=== PATIENT | male | born 1995 | race Asian ===

== ENCOUNTER 2019-01-14 18:03 | Emergency (ER) | payer OTHER ==
[2019-01-14 18:23] VITALS: BP 109/66
--- NOTE | 2019-01-14 18:29 | UC ---
Lower Extremity/Ankle HPI - HPI Summary HPI Summary: twisted right ankle about 2 hurs SKIN FORMER while playing basketball---pain and swelling lateral aspect of right ankle---no foot pain - History of Current Complaint Chief Complaint: UCLowerExtremity Stated Complaint: R ANKLE INJURY Time Seen by Provider: 01/14/19 18:16 Hx Obtained From: Patient Onset/Duration: Sudden Onset, Lasting Hours - 2 Pain Intensity: 8 - refused pain medicine Pain Scale Used: 0-10 Numeric Aggravating Factor(s): Standing, Ambulation Alleviating Factor(s): Rest, Elevation, Ice Able to Bear Weight: Yes - with pain - Allergies/Home Medications Allergies/Adverse Reactions: Allergies Allergy/AdvReac Type Severity Reaction Status Date / Time environmental Allergy Congestion Uncoded 01/14/19 18:23 Home Medications: Home Medications NK [No Home Medications Reported] 01/14/19 [History Confirmed 01/14/19] PMH/Surg Hx/FS Hx/Imm Hx Previously Healthy: Yes - Surgical History Surgical History: None - Family History Known Family History: Positive: None - Social History Occupation: Student Lives: Dormitory/Roommates Alcohol Use: Occasionally Substance Use Type: None Smoking Status (MU): Current Some Day Smoker Amount Used/How Often: 1 cig/3 months Household Exposure Type: Cigarettes Review of Systems All Other Systems Reviewed And Are Negative: Yes Constitutional: Positive: Negative Skin: Positive: Negative Eyes: Positive: Negative ENT: Positive: Negative Respiratory: Positive: Negative Cardiovascular: Positive: Negative Gastrointestinal: Positive: Negative Genitourinary: Positive: Negative Motor: Positive: Other - right ankle Neurovascular: Positive: Negative Musculoskeletal: Positive: Arthralgia - lateral right ankle Neurological: Positive: Negative Psychological: Positive: Negative Is Patient Immunocompromised?: No Physical Exam Triage Information Reviewed: Yes Appearance: Well-Appearing, No Pain Distress, Well-Nourished Vital Signs: Initial Vital Signs Temp 98.9 F 01/14/19 18:19 Pulse 77 01/14/19 18:19 Resp 18 01/14/19 18:19 BP 109/66 01/14/19 18:19 Pulse Ox 98 01/14/19 18:19 Vital Signs Reviewed: Yes Eye Exam: Normal Eyes: Positive: Conjunctiva Clear ENT Exam: Normal ENT: Positive: Normal ENT inspection, Hearing grossly normal. Negative: Muffled voice, Hoarse voice Dental Exam: Normal Neck exam: Normal Neck: Positive: Supple, Nontender Respiratory Exam: Normal Respiratory: Positive: Chest non-tender, Lungs clear, Normal breath sounds, No respiratory distress, No accessory muscle use Cardiovascular Exam: Normal Cardiovascular: Positive: RRR, No Murmur, Pulses Normal, Brisk Capillary Refill Musculoskeletal Exam: Other Musculoskeletal: Positive: ROM Limited @ - right ankle, Edema @ - right lateral ankle Neurological Exam: Normal Neurological: Positive: Alert, Muscle Tone Normal Psychological Exam: Normal Skin Exam: Normal Diagnostics - Radiology No standard instances Radiology Interpretation Completed By: ED Physician - no evidence of fracture Lower Extremity Course/Dx - Course Course Of Treatment: rice, adina wrap, stirup splint crutches ibuprofen follow with orthopedic md should radiology report be + for fx or not resolved in 5 days - Differential Dx/Diagnosis Provider Diagnosis: Right ankle sprain Discharge - Sign-Out/Discharge Documenting (check all that apply): Patient Departure All imaging exams completed and their final reports reviewed: No - Discharge Plan Condition: Stable Disposition: HOME Patient Education Materials: Ibuprofen (By mouth), Ankle Sprain (ED), Crutch Instructions (ED), R.I.C.E. Treatment (ED) Referrals: Clyde Uribe MD [Medical Doctor] - 5 Days - Billing Disposition and Condition Condition: STABLE Disposition: Home
--- NOTE | 2019-01-15 09:18 | UC ---
- Progress Note Progress Note: Final x-ray report of the right ankle: BONES: There is no displaced fracture. JOINTS: There is minimal tibiotalar osteophyte formation. There is a small joint effusion. ALIGNMENT: There is no dislocation. SOFT TISSUES: There is circumferential soft tissue swelling. IMPRESSION:SOFT TISSUE SWELLING WITH A SMALL JOINT EFFUSION. NO ACUTE OSSEOUS INJURY. IF SYMPTOMS PERSIST, RECOMMEND REPEAT IMAGING. Wet read correct, no change in plan Course/Dx - Diagnoses Provider Diagnoses: Right ankle sprain Discharge - Sign-Out/Discharge Documenting (check all that apply): Post-Discharge Follow Up All imaging exams completed and their final reports reviewed: Yes - Discharge Plan Condition: Stable Disposition: HOME Patient Education Materials: Ibuprofen (By mouth), Ankle Sprain (ED), Crutch Instructions (ED), R.I.C.E. Treatment (ED) Referrals: Clyde Uribe MD [Medical Doctor] - 5 Days - Billing Disposition and Condition Condition: STABLE Disposition: Home
== END 2019-01-14 19:00 | disposition home or self-care (01) ==
LOC: EDSEX 18:03 → UCEAST 18:03
DX: S93.401A Sprain of unspecified ligament of right ankle, initial encounter (principal); X58.XXXA Exposure to other specified factors, initial encounter; Y93.67 Activity, basketball; Y92.310 Basketball court as the place of occurrence of the external cause; Y99.8 Other external cause status; F17.210 Nicotine dependence, cigarettes, uncomplicated
CPT/HCPCS: 99203; G0463